=== PATIENT | female | born 1960 | race Two or more races ===

== ENCOUNTER 2017-10-14 12:45 | Emergency (ER) | payer OTHER ==
[2017-10-14 12:50] VITALS: BP 138/84; PULSE 88; TEMP 98.4; BMI 35.0
--- NOTE | 2017-10-14 13:22 | PDOC ---
History of Present Illness - General Chief Complaint: Cold Symptoms Stated Complaint: CHEST PAIN, COLD SYMPTOMS Time Seen by Provider: 10/14/17 13:05 - History of Present Illness Initial Comments: 57-year-old female presents for evaluation of productive cough clear sputum and subjective fever 5 days. She has done nothing to treat the problem since the onset of symptoms. 10/14/17 13:16 Past History - Past Medical History Allergies/Adverse Reactions: Allergies Allergy/AdvReac Type Severity Reaction Status Date / Time No Known Allergies Allergy Verified 10/14/17 12:46 Home Medications: Ambulatory Orders Amox-Tr/K Cl [Augmentin - 875Mg Tablet] 1 tab PO BID #20 tablet 10/14/17 Guaifenesin Dm [Robitussin Dm -] 10 ml PO Q6H PRN #200 ml 10/14/17 Simvastatin [Zocor -] 20 mg PO HS 10/14/17 COPD: No DVT: No HTN: Yes Hypercholesterolemia: Yes - Suicide/Smoking/Psychosocial Hx Smoking History: Never smoked Have you smoked in the past 12 months: No Information on smoking cessation initiated: No Hx Alcohol Use: No Drug/Substance Use Hx: No Substance Use Type: None Review of Systems - Review of Systems Constitutional: Yes: Chills, Fever, Malaise. No: Diaphoresis, Loss of Appetite , Night Sweats, Weakness HEENTM: Yes: Nose Pain, Nose Congestion, Nose Bleeding, Throat Pain. No: Ear Discharge, Mouth Pain Respiratory: Yes: Cough, Productive cough. No: Orthopnea, Shortness of Breath, SOB with Exertion, SOB at Rest, Stridor, Wheezing, Hemoptysis Cardiac (ROS): Yes: Chest Pain ABD/GI: No: Nausea, Vomiting All Other Systems: Reviewed and Negative *Physical Exam - Vital Signs Last Vital Signs Temp Pulse Resp BP Pulse Ox 98.4 F 88 18 138/84 100 10/14/17 12:47 10/14/17 12:47 10/14/17 12:47 10/14/17 12:47 10/14/17 12:47 - Physical Exam Comments: General Appearance: Well-developed, well-nourished A&O 3 NAD Head: NC/AT Ears: External auditory canals are normal and clear; tympanic membranes are normal; hearing is grossly intact Nose: Injected with swelling and congestion Throat and Oral cavity: Pharynx is injected without exudate no lesions teeth and gingiva are normal Neck: Supple nontender without lymphadenopathy masses or thyromegaly Cardiac: S1 and S2 without murmurs no peripheral edema cyanosis or pallor; extremities are warm and well-perfused; capillary refill is less than 2 seconds without carotid bruits Lungs: CTA and Percussion no rales or rhonchi or wheezing breath sounds are full bilaterally Abdomen: Positive bowel sounds; soft nondistended, nontender, no guarding or rebound tenderness; no masses Musculoskeletal; Adequately aligned spine range of motion intact to spine and extremities Neurologic: Cranial nerves II-XII are grossly intact strength and sensation are symmetric and intact cerebellar testing is negative Skin: Normal color and temperature normal texture turgor no lesions or eruptions 10/14/17 13:19 Medical Decision Making - Medical Decision Making Although she complains of chest pain her pain is associated with cough does not radiate and is more costochondral. This is a sinus infection 10/14/17 13:21 *DC/Admit/Observation/Transfer Diagnosis at time of Disposition: Acute infection of nasal sinus - Discharge Dispostion Disposition: HOME Condition at time of disposition: Stable Decision to Admit order: No - Referrals Referrals: ON STAFF,NOT [Primary Care Provider] - - Patient Instructions Printed Discharge Instructions: Sinusitis, DI for Sinusitis - Post Discharge Activity
== END 2017-10-14 13:36 | disposition home or self-care (01) ==
LOC: JERFT 12:45
DX: J01.90 Acute sinusitis, unspecified (principal); M94.0 Chondrocostal junction syndrome [Tietze]
CPT/HCPCS: 99281-25

== ENCOUNTER 2019-03-12 19:29 | Emergency (ER) | payer OTHER ==
--- NOTE | 2019-03-12 19:52 | PDOC ---
Rapid Medical Evaluation Time Seen by Provider: 03/12/19 19:48 Medical Evaluation: Allergies Allergy/AdvReac Type Severity Reaction Status Date / Time No Known Allergies Allergy Verified 10/14/17 12:46 03/12/19 19:48 I have performed a brief in-person evaluation of this patient. The patient presents with a chief complaint of: R hand/wrist pain, tailbone pain s/p slip and fall 2 days ago while trying to get into a pool while on vacation. NO head injury, no LOC. Took motrin 800mg last night, no relief. Pertinent physical exam findings: Diffuse R wrist/scaphoid tenderness. tailbone tenderness I have ordered the following: LS xray, hand/wrist xrays The patient will proceed to the ED for further evaluation. Discharge Disposition - Diagnosis Fall Qualifiers: Encounter type: initial encounter Qualified Code(s): W19.XXXA - Unspecified fall, initial encounter - Referrals - Patient Instructions - Post Discharge Activity
[2019-03-12 20:00] VITALS: BP 142/73; PULSE 83; TEMP 98; BMI 35.0
--- NOTE | 2019-03-12 20:32 | PDOC ---
History of Present Illness - General Chief Complaint: Injury Stated Complaint: FALL/LOWER BACK PAIN Time Seen by Provider: 03/12/19 19:48 History Source: Patient - History of Present Illness Occurred: reports: other Pain Location: reports: back, upper extremity Method of Injury: Yes: fall Past History - Past Medical History Allergies/Adverse Reactions: Allergies Allergy/AdvReac Type Severity Reaction Status Date / Time No Known Allergies Allergy Verified 03/12/19 19:51 Home Medications: Ambulatory Orders Amox-Tr/K Cl [Augmentin - 875Mg Tablet] 1 tab PO BID #20 tablet 10/14/17 Guaifenesin Dm [Robitussin Dm -] 10 ml PO Q6H PRN #200 ml 10/14/17 Simvastatin [Zocor -] 20 mg PO HS 10/14/17 COPD: No DVT: No HTN: Yes Hypercholesterolemia: Yes - Psycho Social/Smoking Cessation Hx Smoking History: Never smoked Have you smoked in the past 12 months: No Hx Alcohol Use: No Drug/Substance Use Hx: No Substance Use Type: None Review of Systems - Review of Systems Musculoskeletal: Yes: Back Pain, Joint Pain. No: Joint Swelling, Neck Pain Neurological: No: Numbness, Tingling, Weakness, Dizziness *Physical Exam - Vital Signs Last Vital Signs Temp Pulse Resp BP Pulse Ox 98 F 83 18 142/73 99 03/12/19 19:48 03/12/19 19:48 03/12/19 19:48 03/12/19 19:48 03/12/19 19:48 - Physical Exam General Appearance: Yes: Appropriately Dressed. No: Apparent Distress HEENT: positive: Normal Voice Neck: positive: Supple Respiratory/Chest: negative: Respiratory Distress Musculoskeletal: positive: Vertebral Tenderness (to mid lower back, no LE deformity, ambulating) Extremity: positive: Normal Inspection, Normal Range of Motion, Tender (minimal ttp over dorsum of R wrist, no snuffbox ttp, no deformity, NVI). negative: Swelling Integumentary: positive: Dry, Warm Neurologic: positive: Fully Oriented, Alert, Normal Mood/Affect, Motor Strength 5/5 Medical Decision Making - Medical Decision Making 03/12/19 20:31 58 yo F, no sig hx, here w/ multiple injuries s/p injury. Fell 2 days ago while getting out of a pool and since then has had R hand/wrist/lower pain. No joint swelling, deformity. Has been ambulating since. No head injuries. Not on blood thinners. Taking motrin w/ minimal relief see exam M/l MSK injury f/p fall No e/o serious injury on exam XRs neg for fx -Dc w/ OTC meds prn pain -PMD f/u as needed Discharge - Discharge Information Problems reviewed: Yes Clinical Impression/Diagnosis: Muscle injury Fall Qualifiers: Encounter type: initial encounter Qualified Code(s): W19.XXXA - Unspecified fall, initial encounter Condition: Good Disposition: HOME - Follow up/Referral Referrals: ON STAFF,NOT [Primary Care Provider] - - Patient Discharge Instructions Patient Printed Discharge Instructions: DI for Muscle Strain Additional Instructions: You most likely sustained muscular injuries as your x-ray shows no broken bones Take Tylenol or Motrin for pain and follow-up with your PMD if pain persists - Post Discharge Activity
== END 2019-03-12 21:01 | disposition home or self-care (01) ==
LOC: JERFT 19:29 → JER 19:29 → JERFT 21:01
DX: S69.81XA Other specified injuries of right wrist, hand and finger(s), initial encounter (principal); S66.891A Other injury of other specified muscles, fascia and tendons at wrist and hand level, right hand, initial encounter; W17.89XA Other fall from one level to another, initial encounter; Y93.11 Activity, swimming; Y92.34 Swimming pool (public) as the place of occurrence of the external cause; Y99.8 Other external cause status
CPT/HCPCS: 72100-TC-FY; 72170-TC-FY; 73110-TC-RT-FY; 73130-TC-RT-FY; 99281-25

== ENCOUNTER 2021-10-21 14:53 | Emergency (ER) | payer OTHER ==
[2021-10-21 15:00] VITALS: BP 125/75; PULSE 87; TEMP 98; BMI 35.4
[2021-10-21 16:13] LABS: BASO % 0.2 % (0-2.0); EOS % 0.9 % (0-4.5); HEMATOCRIT 35.4 % (32.4-45.2); HEMOGLOBIN 11.9 GM/dL (10.7-15.3); LYMPH % 15.9 % (8-40); MCH 28.5 pg (25.7-33.7); MCHC 33.6 g/dl (32.0-36.0); MEAN PLT VOLUME 7.9 fl (7.5-11.1); MONO % 3.9 % (3.8-10.2); NEUT % 79.1 % (42.8-82.8); PLATELET COUNT 384 10^3/uL (134-434); RBC 4.16 M/mm3 (3.60-5.2); RDW 13.9 % (11.6-15.6); WHITE BLOOD COUNT 9.9 K/mm3 (4.0-10.0)
[2021-10-21 16:37] LABS: ALBUMIN 3.4 g/dl (3.4-5.0); BLOOD UREA NITROGEN 11.2 mg/dL (7-18); CALCIUM 9.3 mg/dL (8.5-10.1)
[2021-10-21 16:41] LABS: CREATININE 0.8 mg/dL (0.55-1.3)
[2021-10-21 16:42] LABS: BILIRUBIN,TOTAL 0.3 mg/dL (0.2-1); TOT PROT 7.2 g/dl (6.4-8.2)
== END 2021-10-21 18:54 | disposition home or self-care (01) ==
LOC: JER 14:53
DX: R05.9 Cough, unspecified (principal)
CPT/HCPCS: 0241U-QW; 36415; 71045-TC-FY; 80053; 84484; 85025; 93005; 93010; 99284-25

== ENCOUNTER 2022-06-05 09:51 | Emergency (ER) | payer OTHER ==
[2022-06-05 10:00] VITALS: BP 162/76; PULSE 69; RESP 18; TEMP 98.4; BMI 34.5
[2022-06-05] MEDS ORDERED: KETOROLAC TROMETHAMINE 30 MG/1 ML VIAL IM ONE (10:16)
[2022-06-05] MEDS ORDERED: KETOROLAC TROMETHAMINE 30 MG/1 ML VIAL ONE (10:27)
== END 2022-06-05 11:32 | disposition home or self-care (01) ==
LOC: JERFT 09:51
PROC: 3E0233Z Introduction of Anti-inflammatory into Muscle, Percutaneous Approach (ICD-10-PCS; principal; 2022-06-05)
DX: S40.011A Contusion of right shoulder, initial encounter (principal); W00.0XXA Fall on same level due to ice and snow, initial encounter
CPT/HCPCS: 73030-TC-RT-FY; 99284-25

== ENCOUNTER 2023-05-09 11:26 | Emergency (ER) | payer OTHER ==
[2023-05-09 11:42] VITALS: BP 137/73; PULSE 71; RESP 17; TEMP 97.6; BMI 33.5
[2023-05-09] MEDS ORDERED: LIDOCAINE 5% TOPICAL PATCH TP ONE (12:29)
[2023-05-09] MEDS ORDERED: ACETAMINOPHEN 325 MG TABLET (FP) PO ONE (12:29)
[2023-05-09] MEDS ORDERED: ACETAMINOPHEN 325 MG TABLET (FP) ONE (12:34)
[2023-05-09] MEDS ORDERED: LIDOCAINE 4% PATCH TP ONE (12:34)
[2023-05-09] MEDS ORDERED: diazePAM 5 MG TABLET PO ONE (12:54)
[2023-05-09] MEDS ORDERED: KETOROLAC TROMETHAMINE 15 MG/ML VIAL IM ONE (12:54)
[2023-05-09] MEDS ORDERED: KETOROLAC TROMETHAMINE 15 MG/ML VIAL ONE (13:03)
[2023-05-09] MEDS ORDERED: diazePAM 5 MG TABLET ONE (13:03)
== END 2023-05-09 14:19 | disposition home or self-care (01) ==
LOC: JERFT 11:26
PROC: 3E0233Z Introduction of Anti-inflammatory into Muscle, Percutaneous Approach (ICD-10-PCS; principal; 2023-05-09)
DX: M54.6 Pain in thoracic spine (principal); G89.29 Other chronic pain; M54.2 Cervicalgia; R68.83 Chills (without fever)
CPT/HCPCS: 72070-TC-FY; 72100-TC-FY; 99284-25